=== PATIENT | female | born 1990 | race Caucasian/White ===

== ENCOUNTER 2021-08-20 13:32 | Emergency (ER) | payer OTHER ==
[2021-08-20] MEDS ORDERED: BACITRACIN15 GM TOP (17:56)
[2021-08-20] MEDS ORDERED: NAPROXEN500 MG PO (17:56)
[2021-08-20] MEDS ORDERED: ACETAMINOPHEN-1 EAC1 PO (18:01)
== END 2021-08-20 18:34 | disposition home or self-care (01) ==
LOC: FER 13:32
DX: T23.252A Burn of second degree of left palm, initial encounter (principal); T24.102A Burn of first degree of unspecified site of left lower limb, except ankle and foot, initial encounter; T24.101A Burn of first degree of unspecified site of right lower limb, except ankle and foot, initial encounter; T22.10XA Burn of first degree of shoulder and upper limb, except wrist and hand, unspecified site, initial encounter; T20.12XA Burn of first degree of lip(s), initial encounter; T20.17XA Burn of first degree of neck, initial encounter; T22.112A Burn of first degree of left forearm, initial encounter; T31.0 Burns involving less than 10% of body surface; Z88.8 Allergy status to other drugs, medicaments and biological substances; X08.8XXA Exposure to other specified smoke, fire and flames, initial encounter; Y92.009 Unspecified place in unspecified non-institutional (private) residence as the place of occurrence of the external cause
CPT/HCPCS: 99283; J2270; J7030